=== PATIENT | male | born 1990 | race Caucasian/White ===

== ENCOUNTER 2016-08-06 07:47 | Emergency (ER) | payer BC ==
[~2016-08-06] VITALS: Ht 165.1 cm; Wt 77.1 kg
[2016-08-06] MEDS ORDERED: [UNRECOGNIZED DRUG - REMARK] (07:59)
--- NOTE | 2016-08-06 08:09 | NUR ---
Pt a/o x 4, vss, nad noted at this time; provided with a meal tray. Cont to monitor.
--- NOTE | 2016-08-06 08:49 | NUR ---
Pt evaluated by MD; rechecked PT=341; Patient discharged home in stable conditon. Written and verbal after care instructions given. Patient verbalizes understanding of instructions.
[2016-08-06 08:50] VITALS: BP 138/84
== END 2016-08-06 08:52 | disposition home or self-care (01) ==
LOC: ER 07:47
DX: E11.649 Type 2 diabetes mellitus with hypoglycemia without coma (principal)
CPT/HCPCS: A4663